=== PATIENT | male | born 1945 | race Caucasian/White ===

== ENCOUNTER → 2024-04-13 | Outpatient (CLI) | payer MEDICARE ==
--- NOTE | 2024-04-13 13:48 | MR ---
EXAMINATION TYPE: MR knee RT wo con DATE OF EXAM: 04/13/2024 1:31 PM COMPARISON: X-ray 04/06/2024 CLINICAL INDICATION: Male, 79 years old with history of M25.561 PAIN IN RIGHT KNEE, Rt knee pain TECHNIQUE: Multiplanar, multisequence imaging of the right knee is performed without IV contrast. FINDINGS: MEDIAL MENISCUS: There is grade 3 abnormal signal involving the posterior horn, body and anterior hor n of the medial meniscus likely in the basis of degenerative meniscal tear. LATERAL MENISCUS: Anterior and posterior horns demonstrate intrasubstance signal favored to represent myxoid degeneration. Linear tear not excluded. CRUCIATE LIGAMENTS: The anterior and posterior cruciate ligaments are intact and unremarkable. COLLATERAL LIGAMENTS: The medial collateral ligament and lateral collateral ligament complex are inta ct and unremarkable. Increased fluid suggestive of a grade 1 MCL sprain. EXTENSOR MECHANISM: Visualized quadriceps and patellar tendons are intact. There is an enthesophyte a long the anterior upper pole of the patella near the quadriceps insertion. EFFUSION: Small suprapatellar bursal fluid collection. POPLITEAL CYST: There is a popliteal fossa cyst measuring 1.4 x 1.5 x 4.7 cm. TRICOMPARTMENT SPACES: A moderate narrowing of the medial compartment mild narrowing of patellofemora l compartment of the joint space with marginal spurring. No erosive changes. CARTILAGE: There is loss of articular surface cartilage of the distal femur and proximal articular tibia with adjacent reactive marrow changes of the medial articular cartilage compatible with grade III chondromalacia. BONE MARROW SIGNAL: There is marrow edema involving the medial tibial plateau likely reactive seconda ry to the arthritic changes. No fracture line identified. IMPRESSION: 1. 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 Sizable area of cartilage loss involving the articular medial femoral and proxim al tibia compatible with chondromalacia. 2. Degenerative tear involving the posterior horn body and anterior horn of the medial meniscus. 3. Intrasubstance signal in the lateral meniscus favored to represent myxoid degeneration over a line ar tear. Correlate clinically. 4. There is a 1.4 x 1.5 x 4.7 cm popliteal fossa cyst. 5. MCL sprain but no evidence of tear. [facility], , 04/13/2024 1:46 PM
== END | disposition home or self-care (01) ==
LOC: RADMRIMAIN 12:48
PROVIDERS: ATTEND Orthopaedic Surgery
DX: S83.241A Other tear of medial meniscus, current injury, right knee, initial encounter (principal); M17.11 Unilateral primary osteoarthritis, right knee; R60.9 Edema, unspecified; X58.XXXA Exposure to other specified factors, initial encounter; M94.261 Chondromalacia, right knee